=== PATIENT | male | born 1945 ===

== ENCOUNTER 2017-02-01 11:42 | Emergency (ER) | payer MEDICARE, BC ==
--- NOTE | ~2017-02-01 | ER ---
PATIENT'S NAME: [facility] AGE: 71 Y [address] ROOM: [place] [address] LOCATION: [facility] ADMIT DATE: 02/01/2017 ER/Outpatient Report DISCHARGE DATE: 02/01/2017 FAMILY PHYSICIAN: Niall Burnham MD ATTENDING PHYSICIAN: Tony Biswas Time of Arrival: 1142 hours. Time of Evaluation: 1145 hours. CHIEF COMPLAINT: Atrial fibrillation attack. HISTORY OF PRESENT ILLNESS: The patient is a 71-year-old male, who presents to the emergency department today with a chief complaint of atrial fibrillation attack. He reports this started about 30 minutes prior to arrival at rest. Per report, he was feeling some lightheadedness. He felt "funniness" in his chest. He did report he got sweaty with it with some nausea, no vomiting. Denies any shortness of breath. No weakness. He reports zero symptoms at this time. He denies any chest pain. He reports he may have had a little bit of pressure. PAST MEDICAL HISTORY: Atrial fibrillation, hypertension, asthma. PAST SURGICAL HISTORY: Right knee, cholecystectomy, bowel surgery. SOCIAL HISTORY: The patient stopped smoking 15 years ago. Drinks alcohol occasionally. Denies any illicit drug use. ALLERGIES: SULFA AND PLASTIC TAPE. MEDICATIONS: Please see list. PRIMARY CARE DOCTOR: Niall Burnham MD. GROUP BURNER MACHINE: Dr. Marr. REVIEW OF SYSTEMS: All systems are reviewed by myself and are negative with the exception of PATIENT'S NAME: [facility] AGE: 71 Y [address] ROOM: [place] [address] LOCATION: [facility] ADMIT DATE: 02/01/2017 ER/Outpatient Report DISCHARGE DATE: 02/01/2017 FAMILY PHYSICIAN: Niall Burnham MD ATTENDING PHYSICIAN: Toyn Biswas those discussed in the HPI and past medical history. PHYSICAL EXAMINATION: VITAL SIGNS: Weight 89 kg, blood pressure 112/68, pulse 66, respiratory rate 20, temperature 95.8, oxygen saturation 100% on room air. GENERAL: The patient is a 71-year-old male, who appears younger than his stated age, in no acute distress. HEENT: Normocephalic, atraumatic. Pupils are equal, round, and reactive to light. Extraocular motions are intact. Nares are patent bilaterally. TMs are clear. NECK: Supple. There is no nuchal rigidity. CARDIOVASCULAR: Regular rate and rhythm. No murmurs, rubs, or gallops. LUNGS: Clear to auscultation bilaterally. No wheezes, rales, or rhonchi. ABDOMEN: Soft, nontender, and nondistended. No rebound, rigidity, or guarding. MUSCULOSKELETAL: The patient moves all 4 extremities. SKIN: Warm and dry. There are no rashes or lesions noted. LABORATORY DATA AND X-RAYS: Labs and x-rays are obtained. EKG is obtained, is interpreted by myself at 1146 hours shows sinus rhythm with a rate of 65, normal axis, normal interval. No ST elevation, ST depression, T-wave inversions. Chest x-ray shows no acute process. CMP is unremarkable. LFTs are normal. Magnesium is normal. CK, CK- MB, and troponin are normal. Free T4 is normal. TSH is 5.13. ProBNP is 276. Coags are normal. Repeat EKG at 1354 hours shows sinus rhythm with a rate of 75; MA interval 221; no ST elevation, ST depression, T-wave inversions. IMPRESSION: 1. Palpitations. 2. Initial visit. EMERGENCY DEPARTMENT COURSE: The patient was brought back to the examination room. Seen and evaluated by myself. IV is established. Laboratory analysis and imaging are obtained as described above. I have discussed results with the patient and his who is at the bedside. He has continued to remain pain-free and palpitation free his entire time here in the emergency department. We did obtain 2-hour cardiac enzymes. I have asked the patient follows up with Dr. Marr's in 2 to 3 days for re-evaluation, consideration for an event monitor. I have also asked to follow up with Dr. Niall Burnham in 2 or 3 days for re-evaluation. They are agreeable without further questions at this time. I did discuss return to care instructions including worsening symptoms or any other concerns, return to the emergency department as soon as possible. DISPOSITION: PATIENT'S NAME: [facility] AGE: 71 Y [address] ROOM: [place] [address] LOCATION: ED ADMIT DATE: 02/01/2017 ER/Outpatient Report DISCHARGE DATE: 02/01/2017 FAMILY PHYSICIAN: Niall Burnham MD ATTENDING PHYSICIAN: Tony Biswas The patient discharged home in good condition. DO TARSHA VÁSQUEZR/modl /[id number] d: 02/01/172042 t: 02/05/172042, OUTPATIENT REPORT
[2017-02-01 12:02] LABS: BASOPHIL # 0.1 K/uL (0.0-0.2); BASOPHIL % 0.6 %; EOSINOPHIL % 8.6 %; HEMATOCRIT 35.1 % (37.0-53.0); HEMOGLOBIN 12.1 g/dL (11.0-16.0); IMMATURE GRANULOCYTE # 0.1 K/uL (0.0-0.3); IMMATURE GRANULOCYTE % 0.6 %; LYMPHOCYTE # 2.2 K/uL (0.8-4.0); LYMPHOCYTE % 19.2 %; MCH 30.6 pg (27.0-34.0); MCHC 34.5 gm/dL (32.0-36.5); MCV 88.9 fl (83.0-98.0); MONOCYTE # 0.8 K/uL (0.0-1.0); MONOCYTE % 6.6 %; MPV 10.2 fl (9.4-12.4); NEUTROPHIL # (ANC) 7.5 K/uL (1.4-9.0); NEUTROPHIL % 64.4 %; NRBC % 0 /100WBC (0-0.00); PLATELET COUNT 297 K/uL (150-450); RBC 3.95 M/uL (3.50-5.50); RDW-CV 13.6 % (11.9-14.6); WBC 11.6 K/uL (4.0-11.0)
[2017-02-01 12:12] LABS: INR - (THERAPEUTIC) 1.02 (0.92-1.07); PROTIME 10.7 SECONDS (9.8-11.4); PTT 25 SECONDS (25-32)
[2017-02-01 12:21] LABS: ALBUMIN 4.2 gm/dL (3.5-5.0); ALK PHOS 70 IU/L (33-138); ALT 34 IU/L (12-78); ANION GAP 12.1 (10.0-19.0); AST 25 IU/L (10-40); BLOOD UREA NITROGEN 18 mg/dL (6-24); CALCIUM 8.9 mg/dL (8.5-10.5); CHLORIDE 103 mMol/L (96-110); CO2 26 mMol/L (22-32); CPK 63 IU/L (35-332); CREATININE 1.4 mg/dL (0.6-1.3); MAGNESIUM 1.9 mg/dL (1.8-2.6); POTASSIUM 4.1 mMol/L (3.7-5.1); SODIUM 137 mMol/L (135-145); TOTAL BILIRUBIN 0.4 mg/dL (0.0-1.5); TOTAL PROTEIN 7.4 g/dL (6.0-8.4)
[2017-02-01 14:16] LABS: CPK 59 IU/L (35-332)
== END 2017-02-01 15:08 | disposition disaster alternative care site (69) ==
LOC: GMED 11:42
PROVIDERS: Emergency Medicine
DX: R00.2 Palpitations (principal); I10 Essential (primary) hypertension; J45.909 Unspecified asthma, uncomplicated; I48.91 Unspecified atrial fibrillation; Z98.890 Other specified postprocedural states; Z90.49 Acquired absence of other specified parts of digestive tract; Z87.891 Personal history of nicotine dependence; Z88.1 Allergy status to other antibiotic agents; Z88.2 Allergy status to sulfonamides; Z88.8 Allergy status to other drugs, medicaments and biological substances; Z79.899 Other long term (current) drug therapy; Z79.82 Long term (current) use of aspirin

== ENCOUNTER → 2017-02-13 | Outpatient (CLI) | payer MEDICARE, BC | END | disposition disaster alternative care site (69) | LOC: LCNC 13:23 | DX: E03.9 Hypothyroidism, unspecified (principal) ==